=== PATIENT | female | born 1985 | race Caucasian/White ===

== ENCOUNTER 2017-02-05 20:28 | Emergency (ER) | payer MEDICAID, OTHER ==
[~2017-02-05] VITALS: Ht 162.6 cm; Wt 67.0 kg
[~2017-02-05 20:28] MED LIST: GUAISOL PO; IBUP-238 PO; OSEL75 PO; Z.0.NO CURRENT MEDS
[2017-02-05 20:30] VITALS: BP 118/70; PULSE 89; RESP 15; TEMP 97.8; O2SAT 96
--- NOTE | 2017-02-05 20:40 | PD ---
Physical Exam Time Seen by Provider: 20:37 Narrative 31yo F sent for clearance of to verify heart tones by Anand Landon for detox from opiates and benzos. Approx 5months. Denies abd pain, cramping; vag dc, bleeding; decreased movement. Patient seen in triage. VS reviewed. Awaiting bed placement. Data Data Last Documented VS Vital Signs Date Time Temp Pulse Resp B/P Pulse Ox O2 Delivery O2 Flow Rate FiO2 02/05/17 20:30 97.8 89 15 118/70 96 Room Air MDM Supervised Visit with TRAE: Della Stewart February 05, 2017 20:40
--- NOTE | 2017-02-05 21:32 | PD ---
HPI Chief Complaint: Medical Clearance Time Seen by Provider: 21:09 Travel History International Travel<30 days: No Contact w/Intl Traveler<30days: No Traveled to known affect area: No History of Present Illness HPI 31-year-old female presents emergency department for clearance prior to going to [facility] for drug rehabilitation. Patient states that she is 5 months and is currently using Dilaudid IV and wants to get clean. Patient states she was [facility] today and was referred here so she could have an ultrasound confirming intrauterine and viability prior to being admitted to [facility]. Patient only complains of vaginal discharge. Denies any abdominal pain vaginal bleeding or loss of fluid. Denies any chest pain shortness of breath headache or fever. PFSH Past Medical History Asthma: Yes Diminished Hearing: No Immunizations Current: Yes Tetanus Vaccination: Unknown Influenza Vaccination: No ?: LMP: DUE 06/21/17 : 1 Past Surgical History Surgical History: No Previous Surgery Social History Alcohol Use: No Tobacco Use: Yes (1-2 CIGS DAILY) Substance Use: Yes (SHOT UP DILAUDID/COCAINE TODAY) Allergies-Medications (Allergen,Severity, Reaction): Coded Allergies: Penicillin (Verified Allergy, Severe, Anaphylaxis, 02/05/17) Reported Meds & Prescriptions Reported Meds & Active Scripts Active Plus Iron 29-1 mg ( Vit-Iron Carbonyl) 1 Tab Tab 1 Tab PO DAILY Motrin (Ibuprofen) 800 Mg Tab 1 Tab PO Q8 Tamiflu 75 mg (Oseltamivir Phosphate) 75 Mg Cap 75 Mg PO BID 5 Days Robitussin Dac (Codeine/Guaifenesin/Pseudoeph) Liqd 10 Ml PO Q6HPRN 5 Days Reported No Current Meds (Miscellaneous Medication) [facility] [place] of Systems Except as stated in HPI: all other systems reviewed are Neg Physical Exam Narrative GENERAL: Well-developed well-nourished no apparent distress SKIN: Multiple fresh track johns observed in her upper extremities. No rash no wound. HEAD: Atraumatic. Normocephalic. EYES: Pupils equal and round. No scleral icterus. No injection or drainage. ENT: No nasal bleeding or discharge. Mucous membranes pink and moist. NECK: Trachea midline. No JVD. CARDIOVASCULAR: Regular rate and rhythm. No murmur appreciated. RESPIRATORY: No accessory muscle use. Clear to auscultation. Breath sounds equal bilaterally. GASTROINTESTINAL: Abdomen soft, non-tender, distended consistent with a five- month gestation.. Hepatic and splenic margins not palpable. GENITOURINARY: Exam performed with female nurse line assembly utility worker present at all times, patient is scant physiologic discharge her , appears to have some lesions on the cervix consistent with HPV. No cervical motion tenderness no bimanual tenderness. MUSCULOSKELETAL: No obvious deformities. No clubbing. No cyanosis. No edema. NEUROLOGICAL: Awake and alert. No obvious cranial nerve deficits. Motor grossly within normal limits. Normal speech. PSYCHIATRIC: Appropriate mood and affect; insight and judgment normal. Data Data Last Documented VS Vital Signs Date Time Temp Pulse Resp B/P Pulse Ox O2 Delivery O2 Flow Rate FiO2 02/05/17 20:41 16 02/05/17 20:30 97.8 89 118/70 96 Room Air Orders Urinalysis - C+S If Indicated (02/05/17 21:09) Wet Prep Profile (02/05/17 21:09) Gc And Chlamydia Pcr (02/05/17 21:10) Labs Laboratory Tests Test 02/05/17 02/05/17 20:45 22:15 Urine Color YELLOW Urine Turbidity HAZY Urine pH 5.5 Urine Specific [place] 1.021 Urine Protein TRACE mg/dL Urine Glucose (UA) NEG mg/dL Urine Ketones NEG mg/dL Urine Occult Blood SMALL Urine Nitrite NEG Urine Bilirubin NEG Urine Urobilinogen LESS THAN 2.0 MG/DL Urine Leukocyte Esterase MOD Urine RBC 8 /hpf Urine WBC 8 /hpf Urine Squamous Epithelial 7 /hpf Cells Urine Amorphous Sediment RARE Urine Bacteria OCC /hpf Urine Mucus FEW /lpf Microscopic Urinalysis Comment CULT NOT INDICATED Clue Cells (Wet Prep) NONE SEEN Vaginal Trichomonas (Wet Prep) NONE SEEN Vaginal Yeast (Wet Prep) NONE SEEN Chlamydia trachomatis DNA NOT DETECTED (PCR) Neisseria gonorrhoeae DNA NOT DETECTED (PCR) MDM Medical Decision Making Medical Screen Exam Complete: Yes Emergency Medical Condition: Yes Differential Diagnosis Drug use, drug use during , poor social circumstance, urinary tract infection. Narrative Course Patient 31-year-old female with admitted drug use during . She needs medical clearance and more specifically an ultrasound prior to the novemberhood. She has no complaints except for some vaginal discharge. No complaints of abdominal pain. Her ultrasound was performed by me is reassuring. Patient had a UA and wet prep pending however she states that her ride can only take her within the next half an hour. She became irate and stated that "it's tear to use and to get clean. I'm just trying to get clean." I explained to her that yes it is difficult to get clean but I'd Lopez her for trying. Discussed the risks to the fetus as she continues to use. The patient requests discharge prior to UA and wet prep being resulted. Think this is reasonable. She is clinically sober to make her own decisions at this time. She was discharged to self-care. Procedures Procedure Narrative Bedside ultrasound abdomen: Transabdominal views were obtained of the uterus showing a single intrauterine with positive motion and heart tones to 143 by M-mode. No gross abnormalities, measures 15 weeks 1 day by biparietal diameter. Diagnosis Primary Impression: Drug abuse and dependence Additional Instructions: 15 weeks 1 day by transabdominal ultrasound, heart tones to 143. No gross abnormalities. Stable for act. Med/Other Pt SpecificInfo: Prescription(s) given Scripts Vit-Iron Carbonyl ( Plus Iron 29-1 mg)1 Tab Tab1 Tab PO DAILY #30 TAB Ref 9 Prov:Les Contreras MD 02/05/17 Disposition: 01 DISCHARGE HOME Condition: Stable Les Contreras MD February 05, 2017 21:32
[2017-02-05 21:43] LABS: BACTERIA, URINE OCC /hpf; BLOOD, URINE SMALL (NEG); COMMENT (UR) CULT NOT INDICATED; CULTURE IF INDICATED CULT NOT INDICATED; GLUCOSE,URINE NEG (NEG); KETONE, URINE NEG (NEG); MUCUS URINE FEW /lpf (OCC); NITRITE,URINE NEG (NEG); PH, URINE 5.5 (5.0-8.5); SQUAMOUS EPITHELIAL CELL URINE 7 /hpf (0-5); URINE COLOR YELLOW (YELLW/STRAW)
[2017-02-05] MEDS ORDERED: PREN29TA PO (22:20)
[2017-02-06 00:26] LABS: CHLAMYDIA PCR NOT DETECTED (NOT DETECT); NEISSERIA PCR NOT DETECTED (NOT DETECT)
== END 2017-02-05 22:27 | disposition home or self-care (01) ==
LOC: NEPD 20:28
DX: O99.322 Drug use complicating pregnancy, second trimester (principal); F11.90 Opioid use, unspecified, uncomplicated; Z3A.15 15 weeks gestation of pregnancy
CPT/HCPCS: 81001; 87210; 87491; 87591; 99282

== ENCOUNTER 2017-03-21 01:34 | Emergency (ER) | payer MEDICAID ==
[~2017-03-21] VITALS: Ht 162.6 cm; Wt 71.6 kg
[~2017-03-21 01:34] MED LIST changes: +PREN29TA PO
[2017-03-21 01:45] VITALS: BP 118/70; PULSE 114; RESP 18; TEMP 98; O2SAT 97
--- NOTE | 2017-03-21 02:20 | PD ---
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 She states been going on for the past week and gradually worsening. Denies any fevers. Patient is 21 weeks by my 15 week ultrasound, , she has not yet established with an COIN MACHINE MECHANIC. She has not seen another physician for this abscess as of yet. She states it started draining so she decided to come in and be seen. She denies any nausea vomiting abdominal pain vaginal bleeding or loss of fluid. She does endorse some "normal" vaginal discharge. Of note the patient was last seen by me for medical clearance to go to [facility] for detoxification from opiates. PFSH Past Medical History Anemia: Yes Asthma: Yes Anxiety: Yes Depression: Yes Diminished Hearing: No Hepatitis: Yes (HEP C) Psychiatric: Yes (PTSD S/P MOTHER'S , INCARCERATION) Immunizations Current: Yes Migraines: Yes Tetanus Vaccination: < 5 Years Influenza Vaccination: No ?: LMP: SEP 2016 : 4 Para: 3 Past Surgical History Surgical History: No Previous Surgery Social History Alcohol Use: No Tobacco Use: Yes (1/2 PPD) Substance Use: Yes (DILAUDID 8MG ORALLY 2X PER DAY: STATED 03/21/17) Allergies-Medications (Allergen,Severity, Reaction): Coded Allergies: Penicillin (Verified Allergy, Severe, Anaphylaxis, 03/21/17) Reported Meds & Prescriptions Reported Meds & Active Scripts Active Plus Iron 29-1 mg ( Vit-Iron Carbonyl) 1 Tab Tab 1 Tab PO DAILY Review of Systems Except as stated in HPI: all other systems reviewed are Neg Physical Exam Narrative GENERAL: Well-developed well-nourished no apparent distress, she was examined with female nurse dermatologist and dermatopathologist present at all times. SKIN: The entire left breast is cellulitic, there is an ulceration of the 12 o' clock position of the left breast which is draining very thick mucoid discharge. The entire breast is tender to palpation. HEAD: Atraumatic. Normocephalic. EYES: Pupils equal and round. No scleral icterus. No injection or drainage. ENT: No nasal bleeding or discharge. Mucous membranes pink and moist. NECK: Trachea midline. No JVD. CARDIOVASCULAR: Regular rate and rhythm. No murmur appreciated. RESPIRATORY: No accessory muscle use. Clear to auscultation. Breath sounds equal bilaterally. GASTROINTESTINAL: Abdomen soft, non-tender, gravid but nontender.. Hepatic and splenic margins not palpable. MUSCULOSKELETAL: No obvious deformities. No clubbing. No cyanosis. No edema. NEUROLOGICAL: Awake and alert. No obvious cranial nerve deficits. Motor grossly within normal limits. Normal speech. PSYCHIATRIC: Appropriate mood and affect; insight and judgment normal. Data Data Last Documented VS Vital Signs Date Time Temp Pulse Resp B/P Pulse Ox O2 Delivery O2 Flow Rate FiO2 03/21/17 01:45 98.0 114 18 118/70 97 Orders Complete Blood Count With Diff (03/21/17 01:51) Comprehensive Metabolic Panel (03/21/17 01:51) Prothrombin Time / Inr (Pt) (03/21/17 01:51) Act Partial Throm Time (Ptt) (03/21/17 01:51) Lactic Acid Sepsis Protocol (03/21/17 01:51) Magnesium (Mg) (03/21/17 01:51) Phosphorus (Po4) (03/21/17 01:51) Lipase (03/21/17 01:51) Urinalysis - C+S If Indicated (03/21/17 01:51) Blood Culture (03/21/17 01:51) Ecg Monitoring (03/21/17 01:51) Iv Access Insert/Monitor (03/21/17 01:51) Oximetry (03/21/17 01:51) Oxygen Administration (03/21/17 01:51) Drug Screen, Random Urine (03/21/17 01:53) Wound Culture And Gram Stain (03/21/17 02:25) MDM Medical Decision Making Medical Screen Exam Complete: Yes Emergency Medical Condition: Yes Differential Diagnosis Sepsis, MRSA, cellulitis, status, vaginal discharge, STD, breast carcinoma. Narrative Course Patient was roomed in the emergency department, after my exam I am quite impressed with the cellulitis distribution. I informed the patient that I would likely be admitting her to the hospital on our initial encounter. She verbalized understanding and agreement. She is accompanied by her boyfriend. I stepped out of the place orders and nursing attempted to place IV I was informed 3 times without success. The patient apparently became upset stating that we were type casting her is a drug addict and wanted to leave AGAINST MEDICAL ADVICE. Multiple staff members attempted to persuade the patient to stay. I was busy willing the ultrasound machine into her room to start an ultrasound guided IV when she walked past me and out into the waiting room. I was then informed that she was going to leave AGAINST MEDICAL ADVICE. I followed the patient to the waiting room where she had stopped at a restroom, I asked her what was going on and she stated that she wanted to leave and go to another hospital because we are type casting her is a drug addict. I asked her to stay and she told me that she would not. I did not have a chance to automobile club travel counselor her on the risks of leaving AGAINST MEDICAL ADVICE. She left the emergency department angry. Diagnosis Primary Impression: Breast abscess Disposition: AGAINST MEDICAL ADVICE (Eloped) Les Contreras MD Mar 21, 2017 02:20
== END 2017-03-21 02:29 | disposition left against medical advice (07) ==
LOC: PHED 01:34
DX: O26.892 Other specified pregnancy related conditions, second trimester (principal); N61.1 Abscess of the breast and nipple; Z3A.21 21 weeks gestation of pregnancy; O98.412 Viral hepatitis complicating pregnancy, second trimester
CPT/HCPCS: 83605; 86403; 87070; 87186; 99283

== ENCOUNTER 2017-04-15 15:43 | Emergency (ER) | payer MEDICAID ==
[~2017-04-15 15:43] MED LIST changes: -GUAISOL PO; -IBUP-238 PO; -OSEL75 PO; -Z.0.NO CURRENT MEDS
--- NOTE | 2017-04-15 16:08 | PD ---
HPI Chief Complaint Patient requires proof of viability to enter drug rehabilitation Date Seen: Apr 15, 2017 Time Seen: 15:30 (Mona Jalloh MD R1) Travel History International Travel<30 Days: No Contact w/Intl Traveler<30Days: No Known Affected Area: No (Mona Jalloh MD) History of Present Illness HPI Patient is a 31-year-old at 30 weeks and 3 days who presents to OB triage requesting proof of viability to enter drug rehabilitation. Patient admits to history of Dilaudid, Xanax and Valium use. Patient denies vaginal bleeding and fluid leakage. She states that she does experience [place]. Positive movement. Para: 3 : 4 (Mona Jalloh MD) History Past Medical History Narrative Medical Hepatitis C HPV - found on last pap smear at beginning of PTSD (Mona Jalloh MD R1) Obstetric History Obstetric History G1 full term, G2 full term, Induced VD G3 full term, G4 current; has received regular care; no complications; plans to give baby up for adoption (Mona Jalloh MD) Past Surgical History Narrative Surgical I&D - left breast; 1 month ago (Mona Jalloh MD) Family History Family History: Negative (Mona Jalloh MD) Social History Alcohol Use: Yes (none during ; every day prior to finding out she was ) Tobacco Use: Yes (1 pack/day -> 1/2 pack/day) Substance Abuse: Yes (Dilaudid, Xanax, Valium; Cocaine use - last use Jun 21, 2016 ) (Mona Jalloh MD R1) Allergies-Medications (Allergen,Severity, Reaction): Coded Allergies: Penicillin (Verified Allergy, Severe, Anaphylaxis, 03/21/17) Home Meds Active Scripts Vit-Iron Carbonyl ( Plus Iron 29-1 mg)1 Tab Tab1 Tab PO DAILY #30 TAB Ref 9 Prov:Les Contreras MD 02/05/17 Review of Systems General / Constitutional: No: Fever, Weight Gain, Chills, Other Eyes: No: Diploplia, Blurred Vision, Visual changes, Pain, Photophobia HENT: No: Headaches, Vertigo, Lightheadedness Cardiovascular: No: Irregular Rhythm, Chest Pain or Discomfort, Palpitations, Tachycardia, Syncope, Varicosities, Edema, Cyanosis Respiratory: No: Cough, Short of Breath, Other Gastrointestinal: No: Nausea, Vomiting, Diarrhea Genitourinary: No: Decreased Urinary Output, Oliguria Musculoskeletal: No: Limited ROM, Weakness, Cramping, Edema, Pain Skin: No Rash, No Itching, No Dryness, No Lumps, No Change in Pigmentation, No Change in Nails, No Alopecia, No Lesions Neurologic: No: Weakness, Dizziness, Syncope, Focal Abnormalities, Coordination Problem, Headache, Slurred Speech, Seizures Psychiatric: No: Depression, Suicidal Ideations, Homicidal Ideation Endocrine: No: Heat Intolerance, Cold Intolerance, Polydipsia, Polyuria, Other (Mona Jalloh MD R1) Physical Exam BP 100/53 HR 70 RR 16 T 98.0 Narrative GENERAL: Well-nourished, well-developed patient. SKIN: Warm and dry. HEAD: Normocephalic and atraumatic. EYES: No scleral icterus. No injection or drainage. ENT: No nasal drainage noted. Mucous membranes pink. Airway patent. NECK: Supple, trachea midline. No JVD. CARDIOVASCULAR: Regular rate and rhythm without murmurs, gallops, or rubs. RESPIRATORY: Breath sounds equal bilaterally. No accessory muscle use. ABDOMEN/GI: Abdomen soft, non-tender, bowel sounds present, no rebound, no guarding Gravid to 30 weeks size GENITOURINARY: Deferred. Membranes: Intact Uterine Contractions: None FHT's: Category: 1 Baseline: 130 Reactive: + Variability: Moderate Decels: None EXTREMITIES: No cyanosis or edema. BACK: Nontender without obvious deformity. No CVA tenderness. NEUROLOGICAL: Awake and alert. Motor and sensory grossly within normal limits. Five out of 5 muscle strength in all muscle groups. Normal speech. (Mona Jalloh MD R1) Data Data Vital Signs Reviewed: Yes (Mona Jalloh MD R1) MDM Plan Patient is a 31-year-old at 30 weeks and 3 days who presents to OB triage requesting proof of viability to enter drug rehabilitation. Patient admits to history of Dilaudid, Xanax and Valium use. * monitoring - see PE (Mona Jalloh MD R1) Diagnosis Diagnosis: Primary Impression: Encounter to determine viability of Disposition: 01 DISCHARGE HOME Condition: Good Collaborating MD Comments Patient care reviewed and supervised with resident (Eva Orantes MD) Mona Jalloh MD R1 Apr 15, 2017 16:08 Eva Orantes MD Apr 29, 2017 10:39
[2017-04-15 16:13] VITALS: BP 100/53; PULSE 70
[2017-04-15 16:15] VITALS: RESP 16; TEMP 98
== END 2017-04-15 17:22 | disposition home or self-care (01) ==
LOC: HOBED 15:43
DX: O99.323 Drug use complicating pregnancy, third trimester (principal); F19.10 Other psychoactive substance abuse, uncomplicated; O99.343 Other mental disorders complicating pregnancy, third trimester; F43.10 Post-traumatic stress disorder, unspecified; O98.413 Viral hepatitis complicating pregnancy, third trimester; B19.20 Unspecified viral hepatitis C without hepatic coma; Z3A.30 30 weeks gestation of pregnancy
CPT/HCPCS: 99282

== ENCOUNTER 2018-09-03 20:35 | Inpatient (IN) ==
[2018-09-03] MEDS ORDERED: Zolpidem Tartrate 5 MG Tablet PO PRN (21:59)
--- NOTE | 2018-09-03 21:59 | ED ---
History of Present Illness Primary Care Physician: No Primary Care Physician care care for women Chief Complaint: I am here today to detox History of Present Illness: 32-year-old at 29 weeks final EDC 11/19/2018 presents to detox. Reports that she had been clean since 2016. Subsequently was experiencing pain in her breast from a breast abscess which she has been treated for greater than 3 months and obtained which she believes was Lortab and Dilaudid from a neighbor. She is not sure where the medication came from but that is what she used prior to becoming clean. She had a previous history of Dilaudid marijuana and cocaine secondary to being homeless states that her grandmother had reported her for credit card fraud and she was in skilled nursing. 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 received antibiotics test of cure is pending next week positive HPV Pap Past medical history breast abscess/drug dependence/ Hep C + Allergies to penicillin morphine latex peanuts shellfish Soc - Tobacco / multi-drug use/ denies alcohol Weeks Gestation:: 29 Para: 4 : 5 Review of Systems All other systems reviewed negative except as stated in HPI Medications and Allergies Allergies Allergy/AdvReac Type Severity Reaction Status Date / Time penicillin G Allergy Severe Anaphylaxis Verified 09/03/18 21:07 morphine Allergy Anaphylaxis Verified 09/03/18 21:07 Home Medications Medication Instructions Recorded Confirmed Type clindamycin HCl 2 tab PO Q6HR 09/03/18 09/03/18 History vit-iron fum-folic ac 1 tab PO DAILY 09/03/18 09/03/18 History [ Vitamin] ranitidine HCl [Zantac] 1 tab PO BID 09/03/18 09/03/18 History Exam Vital signs: Vital Signs 09/03/18 21:02 Temperature 98.7 F Pulse Rate 90 Respiratory Rate 18 Blood Pressure 117/62 Intake & Output 09/03/18 09/03/18 09/04/18 06:59 18:59 06:59 Weight 78.018 kg - Constitutional mild distress, average body habitus, disheveled, cooperative - Routine HEENT Exam Head: Present: normocephalic ENT: Present: mucous membranes dry - Routine Neck Exam Present: supple - Routine Chest/Breast/Axilla Exam Chest wall: Absent: tenderness Breast: Present: induration (2 indurated areas at 12:00 and 3:00-no erythema no edema), scars (Multiple scars around the breast consistent with needle puncture) - Routine Respiratory Exam Absent: accessory muscle use - Routine Cardiovascular Exam Present: RRR - Routine Abdominal Exam Present: soft (Gravid heart rate category 1), normoactive bowel sounds. Absent: guarding - Routine Extremities Exam Absent: cyanosis - Routine Skin Exam Present: dry, scars, wounds - Routine Neurological Exam Present: alert, oriented X3 Assessment and Plan - Diagnosis (1) Drug dependence affecting in third trimester Code(s): O99.323 - Drug use complicating , third trimester Status: Acute Plan: Plan CBC CMP echocardiogram in the a.m. (2) 29 weeks gestation of Code(s): Z3A.29 - 29 weeks gestation of Status: Acute (3) Hepatitis C Code(s): B19.20 - Unspecified viral hepatitis C without hepatic coma Status: Acute (4) Breast abscess during , antepartum Code(s): O91.119 - Abscess of breast associated with , unspecified trimester Status: Acute Plan: Continue for now p.o. antibiotics General surgery consult in the a.m. - Plan Test of cure for GC performed Breast abscess present-but not draining not weeping not oozing-start on IV clindamycin Will contact Dr. Cochran and management for detox Discharge Plan - Discharge Disposition Patient Disposition: ED Admit(ED Internal Use Only) - Physicians Team ED Provider: Ling Kimball Primary Care Provider: Primary Care Physici,No
--- NOTE | 2018-09-03 22:16 | P.HPOB ---
Patient Name: Sagrario Barry Date of : 83 Patient Status: Inpatient Attending Provider: Ling Kimball Date: 09/03/18 21:34 Initialization Date: 09/03/18 21:34 History of Present Illness Primary Care Physician: No Primary Care Physician care care for women Chief Complaint: I am here today to detox History of Present Illness: 32-year-old at 29 weeks final EDC 11/19/2018 presents to detox. Reports that she had been clean since 2016. Subsequently was experiencing pain in her breast from a breast abscess which she has been treated for greater than 3 months and obtained which she believes was Lortab and Dilaudid from a neighbor. She is not sure where the medication came from but that is what she used prior to becoming clean. She had a previous history of Dilaudid marijuana and cocaine secondary to being homeless states that her grandmother had reported her for credit card fraud and she was in [facility]p. 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 received antibiotics test of cure is pending next week positive HPV Pap Past medical history breast abscess/drug dependence/ Hep C + Allergies to penicillin morphine latex peanuts shellfish Soc - Tobacco / multi-drug use/ denies alcohol Weeks Gestation:: 29 Para: 4 : 5 Review of Systems All other systems reviewed negative except as stated in HPI Medications and Allergies Allergies Allergy/AdvReac Type Severity Reaction Status Date / Time penicillin G Allergy Severe Anaphylaxis Verified 09/03/18 21:07 morphine Allergy Anaphylaxis Verified 09/03/18 21:07 Home Medications Medication Instructions Recorded Confirmed Type clindamycin HCl 2 tab PO Q6HR 09/03/18 09/03/18 History vit-iron fum-folic ac 1 tab PO DAILY 09/03/18 09/03/18 History [ Vitamin] ranitidine HCl [Zantac] 1 tab PO BID 09/03/18 09/03/18 History Exam Vital signs: Vital Signs 09/03/18 21:02 Temperature 98.7 F Pulse Rate 90 Respiratory Rate 18 Blood Pressure 117/62 Intake & Output 09/03/18 09/03/18 09/04/18 06:59 18:59 06:59 Weight 78.018 kg - Constitutional mild distress, average body habitus, disheveled, cooperative - Routine HEENT Exam Head: Present: normocephalic ENT: Present: mucous membranes dry - Routine Neck Exam Present: supple - Routine Chest/Breast/Axilla Exam Chest wall: Absent: tenderness Breast: Present: induration (2 indurated areas at 12:00 and 3:00-no erythema no edema), scars (Multiple scars around the breast consistent with needle puncture) - Routine Respiratory Exam Absent: accessory muscle use - Routine Cardiovascular Exam Present: RRR - Routine Abdominal Exam Present: soft (Gravid heart rate category 1), normoactive bowel sounds. Absent: guarding - Routine Extremities Exam Absent: cyanosis - Routine Skin Exam Present: dry, scars, wounds - Routine Neurological Exam Present: alert, oriented X3 Assessment and Plan - Diagnosis (1) Drug dependence affecting in third trimester Code(s): O99.323 - Drug use complicating , third trimester Status: Acute Plan: Plan CBC CMP echocardiogram in the a.m. (2) 29 weeks gestation of Code(s): Z3A.29 - 29 weeks gestation of Status: Acute (3) Hepatitis C Code(s): B19.20 - Unspecified viral hepatitis C without hepatic coma Status: Acute (4) Breast abscess during , antepartum Code(s): O91.119 - Abscess of breast associated with , unspecified trimester Status: Acute Plan: Continue for now p.o. antibiotics General surgery consult in the a.m. - Plan Test of cure for GC performed Breast abscess present-but not draining not weeping not oozing-we will continue current dose of clindamycin however will contact general surgery in the a.m. for reevaluation Plan echocardiogram due to history of IV drug use as well Discussed with Dr. Cochran-who advised and I agree with the plan Vistaril clonidine and Ativan .Subutex as needed CBC CMP performed evaluate liver function Repeat HIV testing Ultrasound in a.m. for EFW Discharge Plan - Discharge Disposition Patient Disposition: ED Admit(ED Internal Use Only) - Physicians Team ED Provider: Ling Kimball Primary Care Provider: Primary Care Carlie Leon
[2018-09-03 22:45] LABS: Bilirubin,Urine Negative (Negative); Calcium Oxalate Crystals,Urine Few /hpf; Clarity,Urine Hazy (Clear); Color,Urine Yellow (Yellw/Straw); Glucose,Urine (UA) Negative (Negative); Leukocyte Esterase,Urine Negative (Negative); Mucus,Urine Few /lpf (Occasional); Nitrite,Urine Negative (Negative); Specific Gravity,Urine 1.024 (1.002-1.035); Squamous Epithelial Cell,Urine 2 /hpf (0-5)
[2018-09-03 22:47] LABS: Urobilinogen,Urine 0.2 mg/dL (Less than 2)
[2018-09-03] MEDS: Acetaminophen 325 MG Tablet PO PRN (23:42)
[2018-09-04 01:29] LABS: Baso % (Auto) 0.5 % (0.0-2.0); Eos # (Auto) 0.1 th/mm3 (0.0-0.4); Hemoglobin 11.2 gm/dL (11.6-15.3); Lymph # (Auto) 1.6 th/mm3 (1.0-4.8); Lymph % (Auto) 18.5 % (9.0-44.0); Mean Corpuscular HGB Conc 35.1 % (32.0-36.0); Mean Corpuscular Hemoglobin 30.2 pg (27.0-34.0); Mean Corpuscular Volume 86.2 fL (80.0-100.0); Mean Platelet Volume 9.7 fL (7.0-11.0); Mono # (Auto) 0.6 th/mm3 (0.0-0.9); Mono % (Auto) 6.3 % (0.0-8.0); Neut # (Auto) 6.5 th/mm3 (1.8-7.7); Neut % (Auto) 73.7 % (16.0-70.0); Platelet Count 170 th/mm3 (150-450); Red Blood Count 3.71 mil/mm3 (4.00-5.30); Red Cell Distribution Width 13.4 % (11.6-17.2); White Blood Count 8.8 th/mm3 (4.0-11.0)
[2018-09-04 02:56] LABS: Anion Gap 8 meq/L (5-15); Blood Urea Nitrogen 7 mg/dL (7-18); Calcium 7.8 mg/dL (8.5-10.1); Carbon Dioxide 22.3 meq/L (21.0-32.0); Chloride 107 meq/L (98-107); Glomerular Filtration Rate Greater Than 89 mL/min (>89); Glucose,Random 132 mg/dL (74-106); Potassium 3.4 meq/L (3.5-5.1); Sodium 137 meq/L (136-145)
[2018-09-04 02:57] LABS: Alanine Aminotransferase 15 U/L (10-53); Albumin 2.1 g/dL (3.4-5.0); Alkaline Phosphatase 92 U/L (45-117); Aspartate Aminotransferase 26 U/L (15-37); Total Protein 5.8 g/dL (6.4-8.2)
[2018-09-04] MEDS: guaiFENesin/Dextromethorphan 200 MG/20 MG 10 ML UDC PO PRN ×2 (03:30→08:12)
[2018-09-04] MEDS: Ferrous Sulfate 325 MG Tablet PO SCH ×2 (08:12→21:04)
[2018-09-04] MEDS: Prenatal Vit/Ca/Iron/Folic Acid Tablet PO SCH (08:12)
--- NOTE | 2018-09-04 08:57 | P.OBANTE ---
Subjective Interval History: at 29 weeks and 1 day with EDC 11/19/2018who is being observed for opiate withdrawal symptoms. She is actively withdrawing this morning. The last time she used was 4PM yesterday. Urine was positive for oxycodone/methamphetamine/THC /opiates. She has not received Ativan or Clonidine overnight, but has received Vistaril. She reports minimal nausea. She denies diarrhea. She reports hot and cold sweats. She denies any breast pain. She is feeling baby move. She denies contractions, vaginal bleeding, leakage of fluid. The patient follow with [facility]. She had a growth scan on 08/18 and baby is in the 63% percentile. The patient is scheduled to have a growth scan and meet with the [facility] physician on Friday09/09/18. Antepartum ROS: Reports: movement normal Denies: Loss of fluid, Vaginal bleeding, Contractions Objective Vital Signs and I&O: Vital Signs 09/03/18 21:02 09/03/18 23:25 09/03/18 23:26 Temperature 98.7 F 98.5 F Pulse Rate 90 88 Respiratory Rate 18 18 Blood Pressure 117/62 113/58 L 09/04/18 03:03 09/04/18 07:45 Temperature 98.0 F 97.9 F Pulse Rate 100 H 86 Respiratory Rate 18 20 Blood Pressure 93/56 L 115/71 Intake & Output 09/03/18 09/04/18 09/04/18 18:59 06:59 18:59 Weight 78.018 kg Other: Weight On Admission 78.018 kg Lab and Micro Results: Laboratory Results - last 24 hr 09/03/18 09/03/18 09/03/18 20:45 20:45 20:45 WBC RBC Hgb Hct MCV MCH MCHC RDW Plt Count MPV Neut % (Auto) Lymph % (Auto) [place] % (Auto) Eos % (Auto) Baso % (Auto) Neut # (Auto) Lymph # (Auto) [place] # (Auto) Eos # (Auto) Baso # (Auto) WBC Differential Differential Comment Sodium Potassium Chloride Carbon Dioxide Anion Gap BUN Creatinine Estimated GFR Random Glucose Calcium Total Bilirubin AST ALT Alkaline Phosphatase Total Protein Albumin Urine Color Yellow Urine Clarity Hazy H Urine pH 6.0 Ur Specific [place] 1.024 Urine Protein Negative Urine Glucose (UA) Negative Urine Ketones Negative Urine Occult Blood Negative Urine Nitrate Negative Urine Bilirubin Negative Urine Urobilinogen 0.2 Ur Leukocyte Esterase Negative Urine RBC 14 H Urine WBC 4 Ur Squamous Epith Cells 2 Calcium Oxalate Crystal Few H Urine Mucus Few H Micro UA Comment Culture not ind Ur Microscopic Review Not Reportable Urine Culture Comments Culture not ind Nasal Screen MRSA (PCR) Clue Cells (Wet Prep) Trichomonas (Wet Prep) Yeast (Wet Prep) POC Urine Opiates Positive POC Urine Buprenorphine Negative POC Urine Oxycodone Positive A POC Urine Methadone Negative POC Urine Barbiturates Negative POC Urine PCP Negative POC Ur Amphetamines Negative POC Ur Methamphetamine Positive POC Urine MDMA Negative POC Ur Benzodiazepine Negative POC Urine Cocaine Negative POC Ur Marijuana (THC) Positive Chlam trachomat DNA PCR Not detected HIV 1&2 Ab/P24 Ag 4thGn N.gonorrhoeae DNA (PCR) Not detected 09/03/18 09/03/18 09/04/18 21:25 22:57 01:06 WBC 8.8 RBC 3.71 L Hgb 11.2 L Hct 32.0 L MCV 86.2 MCH 30.2 MCHC 35.1 RDW 13.4 Plt Count 170 MPV 9.7 Neut % (Auto) 73.7 H Lymph % (Auto) 18.5 Bradford % (Auto) 6.3 Eos % (Auto) 1.0 Baso % (Auto) 0.5 Neut # (Auto) 6.5 Lymph # (Auto) 1.6 [place] # (Auto) 0.6 Eos # (Auto) 0.1 Baso # (Auto) 0.0 WBC Differential . Differential Comment Auto diff final Sodium Potassium Chloride Carbon Dioxide Anion Gap BUN Creatinine Estimated GFR Random Glucose Calcium Total Bilirubin AST ALT Alkaline Phosphatase Total Protein Albumin Urine Color Urine Clarity Urine pH Ur Specific [place] Urine Protein Urine Glucose (UA) Urine Ketones Urine Occult Blood Urine Nitrate Urine Bilirubin Urine Urobilinogen Ur Leukocyte Esterase Urine RBC Urine WBC Ur Squamous Epith Cells Calcium Oxalate Crystal Urine Mucus Micro UA Comment Ur Microscopic Review Urine Culture Comments Nasal Screen MRSA (PCR) Not detected Clue Cells (Wet Prep) None seen Trichomonas (Wet Prep) None seen Yeast (Wet Prep) None seen POC Urine Opiates POC Urine Buprenorphine POC Urine Oxycodone POC Urine Methadone POC Urine Barbiturates POC Urine PCP POC Ur Amphetamines POC Ur Methamphetamine POC Urine MDMA POC Ur Benzodiazepine POC Urine Cocaine POC Ur Marijuana (THC) Chlam trachomat DNA PCR HIV 1&2 Ab/P24 Ag 4thGn N.gonorrhoeae DNA (PCR) 09/04/18 09/04/18 01:06 01:06 WBC RBC Hgb Hct MCV MCH MCHC RDW Plt Count MPV Neut % (Auto) Lymph % (Auto) [place] % (Auto) Eos % (Auto) Baso % (Auto) Neut # (Auto) Lymph # (Auto) [place] # (Auto) Eos # (Auto) Baso # (Auto) WBC Differential Differential Comment Sodium 137 Potassium 3.4 L Chloride 107 Carbon Dioxide 22.3 Anion Gap 8 BUN 7 Creatinine 0.48 L Estimated GFR Greater than 89 Random Glucose 132 H Calcium 7.8 L Total Bilirubin 0.3 AST 26 ALT 15 Alkaline Phosphatase 92 Total Protein 5.8 L Albumin 2.1 L Urine Color Urine Clarity Urine pH Ur Specific [place] Urine Protein Urine Glucose (UA) Urine Ketones Urine Occult Blood Urine Nitrate Urine Bilirubin Urine Urobilinogen Ur Leukocyte Esterase Urine RBC Urine WBC Ur Squamous Epith Cells Calcium Oxalate Crystal Urine Mucus Micro UA Comment Ur Microscopic Review Urine Culture Comments Nasal Screen MRSA (PCR) Clue Cells (Wet Prep) Trichomonas (Wet Prep) Yeast (Wet Prep) POC Urine Opiates POC Urine Buprenorphine POC Urine Oxycodone POC Urine Methadone POC Urine Barbiturates POC Urine PCP POC Ur Amphetamines POC Ur Methamphetamine POC Urine MDMA POC Ur Benzodiazepine POC Urine Cocaine POC Ur Marijuana (THC) Chlam trachomat DNA PCR HIV 1&2 Ab/P24 Ag 4thGn Nonreactive N.gonorrhoeae DNA (PCR) Physical Exam: GENERAL: visibly uncomfortable, constantly moving her limbs until she rested in position CARDIOVASCULAR: Regular rate and rhythm without murmurs, gallops, or rubs. RESPIRATORY: Expiratory wheezing diffusely. No accessory muscle use. ABDOMEN/GI: Abdomen soft, non-tender. SKIN: multiple track johns on right breast, induration, tender, puncture johns, left inner ankle with track johns GENITOURINARY: FHT's: Category: 1 Baseline: 150 Reactive: yes Variability: moderate Decels: none EXTREMITIES: No cyanosis or edema, non-tender, without signs of DVT. Assessment and Plan - Diagnosis (1) 29 weeks gestation of Code(s): Z3A.29 - 29 weeks gestation of Status: Acute (2) Breast abscess during , antepartum Code(s): O91.119 - Abscess of breast associated with , unspecified trimester Status: Acute (3) Drug dependence affecting in third trimester Code(s): O99.323 - Drug use complicating , third trimester Status: Acute (4) Hepatitis C Code(s): B19.20 - Unspecified viral hepatitis C without hepatic coma Status: Acute (5) Asthma Code(s): J45.909 - Unspecified asthma, uncomplicated Status: Acute - Plan Test of cure for GC performed: NEGATIVE Breast abscess -Continue current dose of clindamycin -Consult general surgery, appreciate recommendations Drug Use -Echocardiogram to evaluate for endocarditis -Dr. Kimball discussed with Dr. Cochran-who advised Vistaril, Clonidine and Ativan. Subutex as needed. Deferred Subutex thus far. -CBC & CMP performed evaluate liver function- LFTs WNL -HIV testing- NEGATIVE -Keep scheduled US on 09/09 -Patient will likely need set up with [facility], [facility], [facility]. Will obtain the referral forms. Asthma -Albuterol nebulizer Q4H PRN for wheezing
[2018-09-04] MEDS: LORazepam 1 MG Tablet PO PRN ×2 (09:05→15:08)
--- NOTE | 2018-09-04 12:21 | US ---
EXAM DATE: 09/04/2018 12:00 PM EST AGE/SEX: 32 years / Female INDICATIONS: Right breast pain. CLINICAL DATA: This is the patient's initial encounter. Patient reports that signs and symptoms have been present for 1 day and indicates a pain score of 0/10. MEDICAL/SURGICAL HISTORY: . IV drug use. None. COMPARISON: No prior exams available for comparison. TECHNIQUE: Real-time ultrasound examination was performed using a high-frequency transducer. Conven tional and compound scanning techniques were used. FINDINGS: Multiple sonographic images of the right breast were performed. At 3:00 8 cm from the nipple there is a tiny subcutaneous complex collection measuring 1.8 x 1.0 x 1.5 cm which raises the possibility of tiny subcutaneous abscess. Clinical correlation is recommended. At 12:00 no definite subcutaneous col lection or mass is noted. CONCLUSION: 1. Within the right breast, at 3:00 8 cm from the right nipple there is a tiny subcutaneous complex collection measuring 1.8 x 1.0 x 1.5 cm which raises the possibility of tiny subcutaneous abscess. Cl inical correlation is recommended. 2. At 12:00 within the right breast, no definite subcutaneous collection or mass is noted. Electronically signed by: Les Murphy MD Board Certified Radiologist 09/04/2018 12:20 PM EST
[2018-09-04] MEDS ORDERED: Loperamide 2 MG Capsule PO PRN (15:16)
[2018-09-04] MEDS ORDERED: Loperamide 2 MG Capsule PO ONE (15:30)
--- NOTE | 2018-09-04 17:34 | P.OBANTE ---
Subjective Interval History: 32 yo P4 at 33+ weeks who presented with a painful breast abcess where she has been using IV opioids and opiates (oxycodone, heroin, dilaudid) with severe nausea, anorexia, diarrhea and abdominal cramping. Cannot tolerate monitoring. States breast remains painful. She has no IV access in her arms anymore and has been using the breast tissue to inject. She has had a larger breast abcess incised and drained in the recent past. This one is small and she is awaiting IV access to have optimal antibiotics. She cannot tolerate po at this time. She is afebrile and has a normal white count. She is likely immunocompromised due to her drug use. She is not comfortable with being interviewed at this time. She does want to begin subutex at this time. She has severe reso Prior PNC has been with [facility]. She has hep C. She has had four children. Objective Vital Signs and I&O: Vital Signs 09/03/18 21:02 09/03/18 23:25 09/03/18 23:26 Temperature 98.7 F 98.5 F Pulse Rate 90 88 Respiratory Rate 18 18 Blood Pressure 117/62 113/58 L 09/04/18 03:03 09/04/18 07:45 09/04/18 12:00 Temperature 98.0 F 97.9 F 97.9 F Pulse Rate 100 H 86 94 H Respiratory Rate 18 20 18 Blood Pressure 93/56 L 115/71 108/64 09/04/18 16:35 Temperature 98.9 F Pulse Rate 100 H Respiratory Rate 16 Blood Pressure 111/54 L Intake & Output 09/03/18 09/04/18 09/04/18 18:59 06:59 18:59 Weight 78.018 kg Other: Weight On Admission 78.018 kg Lab and Micro Results: Laboratory Results - last 24 hr 09/03/18 09/03/18 09/03/18 20:45 20:45 20:45 WBC RBC Hgb Hct MCV MCH MCHC RDW Plt Count MPV Neut % (Auto) Lymph % (Auto) [place] % (Auto) Eos % (Auto) Baso % (Auto) Neut # (Auto) Lymph # (Auto) [place] # (Auto) Eos # (Auto) Baso # (Auto) WBC Differential Differential Comment Sodium Potassium Chloride Carbon Dioxide Anion Gap BUN Creatinine Estimated GFR Random Glucose Calcium Total Bilirubin AST ALT Alkaline Phosphatase Total Protein Albumin Urine Color Yellow Urine Clarity Hazy H Urine pH 6.0 Ur Specific [place] 1.024 Urine Protein Negative Urine Glucose (UA) Negative Urine Ketones Negative Urine Occult Blood Negative Urine Nitrate Negative Urine Bilirubin Negative Urine Urobilinogen 0.2 Ur Leukocyte Esterase Negative Urine RBC 14 H Urine WBC 4 Ur Squamous Epith Cells 2 Calcium Oxalate Crystal Few H Urine Mucus Few H Micro UA Comment Culture not ind Ur Microscopic Review Not Reportable Urine Culture Comments Culture not ind Nasal Screen MRSA (PCR) Clue Cells (Wet Prep) Trichomonas (Wet Prep) Yeast (Wet Prep) POC Urine Opiates Positive POC Urine Buprenorphine Negative POC Urine Oxycodone Positive A POC Urine Methadone Negative POC Urine Barbiturates Negative POC Urine PCP Negative POC Ur Amphetamines Negative POC Ur Methamphetamine Positive POC Urine MDMA Negative POC Ur Benzodiazepine Negative POC Urine Cocaine Negative POC Ur Marijuana (THC) Positive Chlam trachomat DNA PCR Not detected HIV 1&2 Ab/P24 Ag 4thGn N.gonorrhoeae DNA (PCR) Not detected 09/03/18 09/03/18 09/04/18 21:25 22:57 01:06 WBC 8.8 RBC 3.71 L Hgb 11.2 L Hct 32.0 L MCV 86.2 MCH 30.2 MCHC 35.1 RDW 13.4 Plt Count 170 MPV 9.7 Neut % (Auto) 73.7 H Lymph % (Auto) 18.5 [place]eller % (Auto) 6.3 Eos % (Auto) 1.0 Baso % (Auto) 0.5 Neut # (Auto) 6.5 Lymph # (Auto) 1.6 [place]eller # (Auto) 0.6 Eos # (Auto) 0.1 Baso # (Auto) 0.0 WBC Differential . Differential Comment Auto diff final Sodium Potassium Chloride Carbon Dioxide Anion Gap BUN Creatinine Estimated GFR Random Glucose Calcium Total Bilirubin AST ALT Alkaline Phosphatase Total Protein Albumin Urine Color Urine Clarity Urine pH Ur Specific [place] Urine Protein Urine Glucose (UA) Urine Ketones Urine Occult Blood Urine Nitrate Urine Bilirubin Urine Urobilinogen Ur Leukocyte Esterase Urine RBC Urine WBC Ur Squamous Epith Cells Calcium Oxalate Crystal Urine Mucus Micro UA Comment Ur Microscopic Review Urine Culture Comments Nasal Screen MRSA (PCR) Not detected Clue Cells (Wet Prep) None seen Trichomonas (Wet Prep) None seen Yeast (Wet Prep) None seen POC Urine Opiates POC Urine Buprenorphine POC Urine Oxycodone POC Urine Methadone POC Urine Barbiturates POC Urine PCP POC Ur Amphetamines POC Ur Methamphetamine POC Urine MDMA POC Ur Benzodiazepine POC Urine Cocaine POC Ur Marijuana (THC) Chlam trachomat DNA PCR HIV 1&2 Ab/P24 Ag 4thGn N.gonorrhoeae DNA (PCR) 09/04/18 09/04/18 01:06 01:06 WBC RBC Hgb Hct MCV MCH MCHC RDW Plt Count MPV Neut % (Auto) Lymph % (Auto) [place] % (Auto) Eos % (Auto) Baso % (Auto) Neut # (Auto) Lymph # (Auto) [place] # (Auto) Eos # (Auto) Baso # (Auto) WBC Differential Differential Comment Sodium 137 Potassium 3.4 L Chloride 107 Carbon Dioxide 22.3 Anion Gap 8 BUN 7 Creatinine 0.48 L Estimated GFR Greater than 89 Random Glucose 132 H Calcium 7.8 L Total Bilirubin 0.3 AST 26 ALT 15 Alkaline Phosphatase 92 Total Protein 5.8 L Albumin 2.1 L Urine Color Urine Clarity Urine pH Ur Specific [place] Urine Protein Urine Glucose (UA) Urine Ketones Urine Occult Blood Urine Nitrate Urine Bilirubin Urine Urobilinogen Ur Leukocyte Esterase Urine RBC Urine WBC Ur Squamous Epith Cells Calcium Oxalate Crystal Urine Mucus Micro UA Comment Ur Microscopic Review Urine Culture Comments Nasal Screen MRSA (PCR) Clue Cells (Wet Prep) Trichomonas (Wet Prep) Yeast (Wet Prep) POC Urine Opiates POC Urine Buprenorphine POC Urine Oxycodone POC Urine Methadone POC Urine Barbiturates POC Urine PCP POC Ur Amphetamines POC Ur Methamphetamine POC Urine MDMA POC Ur Benzodiazepine POC Urine Cocaine POC Ur Marijuana (THC) Chlam trachomat DNA PCR HIV 1&2 Ab/P24 Ag 4thGn Nonreactive N.gonorrhoeae DNA (PCR) Physical Exam: GENERAL: Ill appearing woman with cindy face. Poor skin turgor. No identifiable patent veins due to scarring. . ABDOMEN/GI: Abdomen soft, non-tender. strip is difficult to maintain but accels seen. Now becoming more tachycardic do to mom's dehydration. She is not voiding or drinking. EXTREMITIES: No cyanosis or edema, non-tender, without signs of DVT. Assessment and Plan - Diagnosis (1) 29 weeks gestation of Code(s): Z3A.29 - 29 weeks gestation of Status: Acute (2) Drug dependence affecting in third trimester Code(s): O99.323 - Drug use complicating , third trimester Status: Acute (3) Hepatitis C Code(s): B19.20 - Unspecified viral hepatitis C without hepatic coma Status: Acute (4) Breast abscess during , antepartum Code(s): O91.119 - Abscess of breast associated with , unspecified trimester Status: Acute - Plan Test of cure for GC performed: NEGATIVE Breast abscess -Continue current dose of clindamycin -Consult general surgery, appreciate recommendations Drug Use -Echocardiogram to evaluate for endocarditis -Dr. Kimball discussed with Dr. Cochran-who advised Vistaril, Clonidine and Ativan. Subutex as needed. Deferred Subutex thus far. -CBC & CMP performed evaluate liver function- LFTs WNL -HIV testing- NEGATIVE -Keep scheduled US on 09/09 -Patient will likely need set up with [facility], [facility], [facility]. Will obtain the referral forms. Asthma -Albuterol nebulizer Q4H PRN for wheezing 09/04/18 17;30 Dehydrated, ill appearing female in active withdrawal from opioids with tachycardic fetus and inability to tolerate po. Breast abcess small on ultrasound and hopefully will respond to IV antibiotics. Dr. Dunn aware and agrees (general surgery) Needs IV access team in order to hydrate and correct dehydration and provide IV antibiotics Needs subutex for her withdrawal. See orders.
--- NOTE | 2018-09-04 18:59 | ECHRPT ---
Indication: sepsis poss endocarditis CONCLUSIONS Normal left ventricular size. Wall thickness is normal. The left ventricular systolic function is hyperdynamic with an estimated ejection fraction in the ra nge of 65- 70%. There is trace tricuspid valve regurgitation. BP: / HR: Rhythm: MEASUREMENTS (Male / Female) Normal Values Technical Quality: 2D ECHO LV Diastolic Diameter PLAX 5.1 cm 4.2 - 5.9 / 3.9 - 5.3 cm LV Systolic Diameter PLAX 3.1 cm IVS Diastolic Thickness 0.7 cm 0.6 - 1.0 / 0.6 - 0.9 cm LVPW Diastolic Thickness 0.8 cm 0.6 - 1.0 / 0.6 - 0.9 cm LV Relative Wall Thickness 0.3 RV Internal Dim ED PLAX 2.9 cm LVOT Diameter 1.7 cm Aortic Root Diameter 1.9 cm LA Systolic Diameter LX 2.9 cm 3.0 - 4.0 / 2.7 - 3.8 cm M-MODE Aortic Root Diameter MM 3.1 cm LA Systolic Diameter MM 2.6 cm LA Ao Ratio MM 0.8 AV Cusp Separation MM 1.8 cm DOPPLER AV Peak Velocity 179.0 cm/s AV Peak Gradient 12.8 mmHg LVOT Peak Velocity 150.0 cm/s LVOT Peak Gradient 9.0 mmHg AV Area Cont Eq pk 1.9 cm Mitral E Point Velocity 61.7 cm/s Mitral A Point Velocity 77.5 cm/s Mitral E to A Ratio 0.8 LV E' Lateral Velocity 10.1 cm/s Mitral E to LV E' Lateral Ratio 6.1 LV E' Septal Velocity 9.8 cm/s Mitral E to LV E' Septal Ratio 6.3 TR Peak Velocity 263.0 cm/s TR Peak Gradient 27.7 mmHg Right Atrial Pressure 10.0 mmHg Pulmonary Artery Systolic Pressu 37.7 mmHg Right Ventricular Systolic Press 37.7 mmHg PV Peak Velocity 147.0 cm/s PV Peak Gradient 8.6 mmHg FINDINGS LEFT VENTRICLE Normal left ventricular size. Wall thickness is normal. The left ventricular systolic function is hyperdynamic with an estimated ejection fraction in the ra nge of 65- 70%. RIGHT VENTRICLE Normal right ventricular size and systolic function. LEFT ATRIUM The left atrial size is normal. RIGHT ATRIUM The right atrial size is normal. ATRIAL SEPTUM Normal atrial septal thickness without atrial level shunting by limited color doppler interrogation. AORTA The aortic root and proximal ascending aorta are normal in size on limited imaging. MITRAL VALVE Structurally normal mitral valve. No mitral valve stenosis or regurgitation. AORTIC VALVE Trileaflet aortic valve. No aortic valve stenosis or regurgitation. TRICUSPID VALVE There is trace tricuspid valve regurgitation. PULMONARY VALVE No pulmonary valve regurgitation or stenosis. VESSELS The inferior vena cava is normal in size. PERICARDIUM No pericardial effusion. Marc Bills MD, FACC, [facility] (Electronically Signed) Final Date:04 September 2018 18:58
[2018-09-04 20:10] LABS: Baso % (Auto) 0.5 % (0.0-2.0); Eos % (Auto) 0.2 % (0.0-4.0); Hematocrit 35.8 % (35.0-46.0); Hemoglobin 12.4 gm/dL (11.6-15.3); Lymph # (Auto) 1.6 th/mm3 (1.0-4.8); Lymph % (Auto) 18.6 % (9.0-44.0); Mean Corpuscular HGB Conc 34.5 % (32.0-36.0); Mean Corpuscular Hemoglobin 29.5 pg (27.0-34.0); Mean Corpuscular Volume 85.4 fL (80.0-100.0); Mean Platelet Volume 10.1 fL (7.0-11.0); Mono # (Auto) 0.5 th/mm3 (0.0-0.9); Mono % (Auto) 6.3 % (0.0-8.0); Neut # (Auto) 6.3 th/mm3 (1.8-7.7); Neut % (Auto) 74.4 % (16.0-70.0); Platelet Count 184 th/mm3 (150-450); Red Blood Count 4.19 mil/mm3 (4.00-5.30); Red Cell Distribution Width 13.3 % (11.6-17.2); White Blood Count 8.4 th/mm3 (4.0-11.0)
[2018-09-04 21:05] LABS: Anion Gap 11 meq/L (5-15); Blood Urea Nitrogen 5 mg/dL (7-18); Calcium 8.2 mg/dL (8.5-10.1); Carbon Dioxide 21.2 meq/L (21.0-32.0); Chloride 107 meq/L (98-107); Glucose,Random 73 mg/dL (74-106); Potassium 3.8 meq/L (3.5-5.1); Sodium 139 meq/L (136-145)
[2018-09-04 21:07] LABS: Glomerular Filtration Rate Greater Than 89 mL/min (>89)
--- NOTE | 2018-09-04 21:08 | MB ---
cc: Abelino Dunn MD DATE: 09/04/2018 REASON FOR CONSULTATION: Concern for right breast abscess. HISTORY OF PRESENT ILLNESS: The patient is a 32-year-old female with history of IV drug abuse, currently , who presents with detox. The patient is noted to be habitual IVDA and tested positive for oxycodone, methamphetamines, THC, and opiates. She presents with symptoms of withdrawal and a right breast abscess. She states she is having right breast pain for the last few days and continued to get worse. She denied any fevers or chills, drainage. She does note a previous history of breast abscess approximately 1 year ago that was drained as well. She further states her pain is 5/10. At its worst, it is 7/10. She states some improvement with pain medication and denies any significant drainage at this time. Surgery was consulted for evaluation and possible surgical intervention. PAST MEDICAL HISTORY: IVDA, current , hepatitis C, HPV positive, gonorrhea history. PAST SURGICAL HISTORY: I and D of breast. SOCIAL HISTORY: Positive for smoking, multi-drug use. Denies ETOH. ALLERGIES: PENICILLIN AND MORPHINE. MEDICATIONS: See EMR. FAMILY HISTORY: Denies diabetes or hypertension. REVIEW OF SYSTEMS: HEENT: Denies eye pain, ear pain. NECK: Denies swelling or pain. LUNGS: Denies cough or wheeze. HEART: Denies palpitations or chest pain. ABDOMEN: Denies abdominal pain. SKIN: Complaints of breast pain, abscess. ENDOCRINE: Denies polyuria or polydipsia. INTEGUMENT: As above. PSYCHIATRIC: History of drug abuse. Denies change in mood or sensorium. NEUROLOGIC: Denies any numbness or tingling. PHYSICAL EXAMINATION: GENERAL: The patient in no acute distress. VITAL SIGNS: Temperature 97.9, pulse 94, respirations 18, blood pressure 108/64. HEENT: Pupils equal, round, reactive. NECK: Supple. Trachea midline. LUNGS: Clear to auscultation, bilateral expansion. HEART: S1, S2 regular. CHEST: Right breast minimal tenderness to palpation. Right breast at 2 o'clock position, minimal fullness. No fluctuance. No significant erythema. Left breast: Healed surgical scar. EXTREMITIES: Warm and well perfused. NEUROLOGIC: GCS of 14. 5/5 motor in all extremities. BACK: Normal curvature. PSYCHIATRIC: Appropriate mood, appropriate insight. LABORATORY AND DIAGNOSTIC DATA: WBC 8.4, hemoglobin 12.4, hematocrit 35.8, platelets 184. Sodium 137, potassium 3.4, chloride 107, BUN 7, creatinine 0.4, calcium 7.8. Albumin 2.1. Ultrasound pending. ASSESSMENT: The patient is a 32-year-old female, right breast abscess, small. PLAN: After a full workup, the patient with above-named issues. At this point, the patient with history of IVDA, in detox with withdrawal symptoms. Discussed possible operative intervention. However at this point, the patient appears to have a small contained abscess, possible fluid collection. I do not believe it necessarily needs operative intervention. We will obtain ultrasound to delineate the specific size and depth of the abscess. If very large abscess, we will consider debridement. However, if small could consider bedside debridement. However, it is small, may warrant just treatment medically with antibiotic therapy. I discussed with the patient and nursing staff in detail. Continue IV antibiotics, pain medication. Surgery will continue to follow. Thank you for the consultation. MD ADAN Fischer/raghav , 08:18 PM , 08:27 PM
[2018-09-05] MEDS: guaiFENesin/Dextromethorphan 200 MG/20 MG 10 ML UDC PO PRN ×3 (01:48→18:14)
[2018-09-05] MEDS: LORazepam 1 MG Tablet PO PRN ×3 (01:48→18:14)
[2018-09-05] MEDS: Prenatal Vit/Ca/Iron/Folic Acid Tablet PO SCH (08:36)
[2018-09-05] MEDS: Ferrous Sulfate 325 MG Tablet PO SCH ×2 (08:36→20:35)
[2018-09-05] MEDS: Famotidine 20 MG Tablet PO SCH ×2 (08:52→20:35)
--- NOTE | 2018-09-05 09:01 | P.OBANTE ---
Subjective Interval History: Patient is doing much better this morning. She reports decreased pain in her right breast abscess. She remained afebrile overnight however she did night sweats. She is having loose stools but the frequency has decreased. She denies chest pain, shortness of breath, dizziness, lower extremity pain. She reports good movement. She denies contractions, vaginal bleeding, vaginal leakage of fluid. Antepartum ROS: Reports: movement normal Denies: New complaints, Loss of fluid, Vaginal bleeding, Contractions Objective Vital Signs and I&O: Vital Signs 09/04/18 12:00 09/04/18 16:35 09/04/18 20:00 Temperature 97.9 F 98.9 F 98.2 F Pulse Rate 94 H 100 H 86 Respiratory Rate 18 16 18 Blood Pressure 108/64 111/54 L 110/62 09/04/18 23:00 09/05/18 01:00 09/05/18 01:45 Temperature Pulse Rate 78 Respiratory Rate 16 16 Blood Pressure 99/57 L 09/05/18 01:57 09/05/18 04:00 09/05/18 06:00 Temperature 97.9 F Pulse Rate Respiratory Rate 18 16 16 Blood Pressure Intake & Output 09/04/18 09/05/18 09/05/18 18:59 06:59 18:59 Intake Total 100 / 100 Balance 100 / 100 Intake: IV 100 / 100 Rocephin Inj 500 MG In NS Inj 100 / 100 100 ML @ 200 mls/hr IV.SIG Q12H COUNT INCLUDES THE [facility] Rx#:[id number] Lab and Micro Results: Laboratory Results - last 24 hr 09/04/18 09/04/18 19:04 19:04 WBC 8.4 RBC 4.19 Hgb 12.4 Hct 35.8 MCV 85.4 MCH 29.5 MCHC 34.5 RDW 13.3 Plt Count 184 MPV 10.1 Neut % (Auto) 74.4 H Lymph % (Auto) 18.6 Sierra % (Auto) 6.3 Eos % (Auto) 0.2 Baso % (Auto) 0.5 Neut # (Auto) 6.3 Lymph # (Auto) 1.6 Sierra # (Auto) 0.5 Eos # (Auto) 0.0 Baso # (Auto) 0.0 WBC Differential . Differential Comment Auto diff final Sodium 139 Potassium 3.8 Chloride 107 Carbon Dioxide 21.2 Anion Gap 11 BUN 5 L Creatinine 0.44 L Estimated GFR Greater than 89 Random Glucose 73 L Calcium 8.2 L Physical Exam: GENERAL: Appears older than her stated age, patient lying in bed constantly moving her legs CARDIOVASCULAR: Regular rate and rhythm without murmurs, gallops, or rubs. RESPIRATORY: Breath sounds equal bilaterally. No accessory muscle use. No wheezing today. ABDOMEN/GI: Abdomen soft, non-tender. SKIN: Track johns on right breast, non-erythematous, mildly indurated at puncture johns. Track johns on right ankle. FHT's: Category: 1 Baseline: 150 Reactive: yes Variability: moderate Decels: none + accels EXTREMITIES: No cyanosis or edema, non-tender, without signs of DVT. Assessment and Plan - Diagnosis (1) 29 weeks gestation of Code(s): Z3A.29 - 29 weeks gestation of Status: Acute (2) Breast abscess during , antepartum Code(s): O91.119 - Abscess of breast associated with , unspecified trimester Status: Acute (3) Drug dependence affecting in third trimester Code(s): O99.323 - Drug use complicating , third trimester Status: Acute (4) Hepatitis C Code(s): B19.20 - Unspecified viral hepatitis C without hepatic coma Status: Acute (5) Asthma Code(s): J45.909 - Unspecified asthma, uncomplicated Status: Acute - Plan Test of cure for GC performed: NEGATIVE Breast abscess -Continue IV antibiotics -Consult general surgery, appreciate recommendations -Breast ultrasound revealed small abscess. Drug Use -Echocardiogram to evaluate for endocarditis was negative for vegetation -Dr. Kimball discussed with Dr. Cochran-who advised Vistaril, Clonidine and Ativan. Subutex started last night. -CBC & CMP performed evaluate liver function- LFTs WNL -HIV testing- NEGATIVE -Keep scheduled US on 09/09 -Patient will likely need set up with [employer], [facility], [employer]. Discussed the services and patient will complete forms. Asthma -Albuterol nebulizer Q4H PRN for wheezing 09/04/18 17:30 Dr. Cochran Note Dehydrated, ill appearing female in active withdrawal from opioids with tachycardic fetus and inability to tolerate po. Breast abcess small on ultrasound and hopefully will respond to IV antibiotics. Dr. Dunn aware and agrees (general surgery) Needs IV access team in order to hydrate and correct dehydration and provide IV antibiotics Needs subutex for her withdrawal. See orders. - Attending Attestation The exam, history, and the medical decision-making described in the above note were completed with the assistance of the resident physician. I reviewed and agree with the findings presented. I attest that I had a [id number] encounter with the patient on the same day, and personally performed and documented my assessment and findings in the medical record.
[2018-09-05] MEDS: Acetaminophen 325 MG Tablet PO PRN (11:29)
--- NOTE | 2018-09-05 13:41 | P.PNGS ---
Subjective Patient reports: no new complaints (Patient says her right breast does not feel any better or any worse than it did yesterday.) Physical Exam Vital signs: Vital Signs 09/04/18 16:35 09/04/18 20:00 09/04/18 23:00 Temperature 98.9 F 98.2 F Pulse Rate 100 H 86 Respiratory Rate 16 18 16 Blood Pressure 111/54 L 110/62 09/05/18 01:00 09/05/18 01:45 09/05/18 01:57 Temperature 97.9 F Pulse Rate 78 Respiratory Rate 16 18 Blood Pressure 99/57 L 09/05/18 04:00 09/05/18 06:00 09/05/18 09:00 Temperature Pulse Rate Respiratory Rate 16 16 16 Blood Pressure 09/05/18 09:43 09/05/18 10:34 09/05/18 10:40 Temperature 98.2 F 98.2 F Pulse Rate 86 Respiratory Rate 16 16 16 Blood Pressure 101/59 L 09/05/18 11:00 Temperature 98.2 F Pulse Rate Respiratory Rate Blood Pressure Intake & Output 09/04/18 09/05/18 09/05/18 18:59 06:59 18:59 Intake Total 1100 / 1100 Balance 1100 / 1100 Intake: IV 1100 / 1100 LR 1000 mL Inj 1,000 ML @ 125 1000 / 1000 mls/hr IV.CONT .Q8H [facility] Rx#: [id number] Rocephin Inj 500 MG In NS Inj 100 / 100 100 ML @ 200 mls/hr IV.SIG Q12H [facility] Rx#:[id number] Narrative: Several small skin scars on the right breast and beneath them palpable firm fibroglandular type tissue. No erythema, no fluctuance, no drainage. Minimal to no tenderness. Results - Labs 09/04/18 19:04 09/04/18 19:04 Laboratory Results - last 24 hr 09/04/18 09/04/18 19:04 19:04 WBC 8.4 RBC 4.19 Hgb 12.4 Hct 35.8 MCV 85.4 MCH 29.5 MCHC 34.5 RDW 13.3 Plt Count 184 MPV 10.1 Neut % (Auto) 74.4 H Lymph % (Auto) 18.6 [place] % (Auto) 6.3 Eos % (Auto) 0.2 Baso % (Auto) 0.5 Neut # (Auto) 6.3 Lymph # (Auto) 1.6 [place] # (Auto) 0.5 Eos # (Auto) 0.0 Baso # (Auto) 0.0 WBC Differential . Differential Comment Auto diff final Sodium 139 Potassium 3.8 Chloride 107 Carbon Dioxide 21.2 Anion Gap 11 BUN 5 L Creatinine 0.44 L Estimated GFR Greater than 89 Random Glucose 73 L Calcium 8.2 L - Imaging Imaging: ITS Impressions Breast Ultrasound 09/04/18 00:00 CONCLUSION: 1. Within the right breast, at 3:00 8 cm from the right nipple there is a tiny subcutaneous complex collection measuring 1.8 x 1.0 x 1.5 cm which raises the possibility of tiny subcutaneous abscess. Clinical correlation is recommended. 2. At 12:00 within the right breast, no definite subcutaneous collection or mass is noted. Assessment and Plan - Assessment (1) Breast abscess during , antepartum Code(s): O91.119 - Abscess of breast associated with , unspecified trimester Status: Acute - Plan Right breast abscess, no external signs of abscess, no erythema, no fluctuance, no drainage. Tenderness minimal. Recommend continued antibiotic treatment. No incision and drainage procedure recommended at this time. Discussed with patient and bedside RN who was present during the examination.
[2018-09-06] MEDS: Prenatal Vit/Ca/Iron/Folic Acid Tablet PO SCH (08:26)
[2018-09-06] MEDS: Ferrous Sulfate 325 MG Tablet PO SCH (08:26)
[2018-09-06] MEDS: Famotidine 20 MG Tablet PO SCH (08:26)
[2018-09-06] MEDS: LORazepam 1 MG Tablet PO PRN (10:42)
--- NOTE | 2018-09-06 10:48 | P.PNGS ---
Subjective Patient reports: no new complaints (no fevers, pain same) Physical Exam Vital signs: Vital Signs 09/05/18 11:00 09/05/18 18:40 09/05/18 20:22 Temperature 98.2 F 98.7 F Pulse Rate 70 65 Respiratory Rate 16 18 Blood Pressure 98/59 L 97/53 L 09/05/18 23:33 09/06/18 00:00 09/06/18 08:27 Temperature 98.9 F 97.4 F L Pulse Rate 60 Respiratory Rate 18 16 Blood Pressure 96/57 L 09/06/18 08:28 Temperature Pulse Rate 69 Respiratory Rate Blood Pressure 98/56 L Intake & Output 09/05/18 09/06/18 09/06/18 18:59 06:59 18:59 Intake Total 1100 / 1100 100 / 100 Balance 1100 / 1100 100 / 100 Intake: IV 1100 / 1100 100 / 100 LR 1000 mL Inj 1,000 ML @ 125 1000 / 1000 mls/hr IV.CONT .Q8H [facility] Rx#: [id number] Rocephin Inj 500 MG In NS Inj 100 / 100 100 / 100 100 ML @ 200 mls/hr IV.SIG Q12H [facility] Rx#:[id number] - Routine Respiratory Exam Present: CTA bilaterally (right chest +ttp upper outer and inner area no cellulitis, no fluculance) Results - Labs 09/04/18 19:04 09/04/18 19:04 - Imaging Imaging: ITS Impressions Breast Ultrasound 09/04/18 00:00 CONCLUSION: 1. Within the right breast, at 3:00 8 cm from the right nipple there is a tiny subcutaneous complex collection measuring 1.8 x 1.0 x 1.5 cm which raises the possibility of tiny subcutaneous abscess. Clinical correlation is recommended. 2. At 12:00 within the right breast, no definite subcutaneous collection or mass is noted. Assessment and Plan - Assessment (1) Breast abscess during , antepartum Code(s): O91.119 - Abscess of breast associated with , unspecified trimester Status: Acute - Plan r/o abscess of right breast PLAN afebrile, no drainable abscess at this time abscess will likely improve with medical tx and abx continue to monitor will s/o please reconsult if needed
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
== END 2018-09-06 14:25 | disposition home or self-care (01) ==
LOC: HOBED 20:35 → H2E 21:50
PROVIDERS: ADMIT Obstetrics & Gynecology; ATTEND Obstetrics & Gynecology